=== PATIENT | male | born 1995 | race African-American/Black ===

== ENCOUNTER 2017-04-27 13:30 | Emergency (ER) | payer SELFPAY ==
[~2017-04-27] VITALS: Ht 177.8 cm; Wt 86.2 kg
[~2017-04-27 13:30] MED LIST: IBUPROFEN600 MG PO; TYLENOL #31 TAB PO
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
[2017-04-27] MEDS ORDERED: IBUPROFEN600 MG ORAL (14:38)
[2017-04-27] MEDS ORDERED: CYCLOBENZAPRINE10 MG ORAL (14:38)
[2017-04-27 16:01] VITALS: BP 136/82
== END 2017-04-27 16:00 | disposition home or self-care (01) ==
LOC: EMR 15:45
DX: S16.1XXA Strain of muscle, fascia and tendon at neck level, initial encounter (principal); V43.62XA Car passenger injured in collision with other type car in traffic accident, initial encounter; Y92.410 Unspecified street and highway as the place of occurrence of the external cause
CPT/HCPCS: 99284